=== PATIENT | male | born 1975 | race African-American/Black ===

== ENCOUNTER 2017-05-15 22:43 | Emergency (ER) | payer BC, MEDICAID ==
[~2017-05-15] VITALS: Ht 170.2 cm; Wt 77.0 kg
[2017-05-15 22:45] VITALS: BP 142/101
== END 2017-05-16 01:05 | disposition left against medical advice (07) ==
LOC: ER 22:54
DX: Z53.21 Procedure and treatment not carried out due to patient leaving prior to being seen by health care provider (principal)

== ENCOUNTER 2017-05-16 01:34 | Emergency (ER) | payer BC, MEDICAID ==
[~2017-05-16] VITALS: Ht 170.2 cm; Wt 77.9 kg
[2017-05-16 02:20] VITALS: BP 119/78
== END 2017-05-16 02:33 | disposition left against medical advice (07) ==
LOC: ER 01:34
DX: Z53.21 Procedure and treatment not carried out due to patient leaving prior to being seen by health care provider (principal)
CPT/HCPCS: Z7610 ×3

== ENCOUNTER 2017-09-04 01:26 | Emergency (ER) | payer BC, MEDICAID | END 2017-09-04 01:48 | disposition left against medical advice (07) | LOC: ER 01:26 | DX: R09.89 Other specified symptoms and signs involving the circulatory and respiratory systems (principal); Z53.21 Procedure and treatment not carried out due to patient leaving prior to being seen by health care provider ==

== ENCOUNTER 2018-07-01 14:41 | Emergency (ER) | payer BC, MEDICAID ==
[~2018-07-01] VITALS: Ht 172.7 cm; Wt 82.8 kg
[2018-07-01 14:55] VITALS: BP 127/83
== END 2018-07-01 16:43 | disposition home or self-care (01) ==
LOC: ER 14:41
DX: M25.512 Pain in left shoulder (principal); M25.511 Pain in right shoulder; V43.52XA Car driver injured in collision with other type car in traffic accident, initial encounter; E11.9 Type 2 diabetes mellitus without complications; F17.200 Nicotine dependence, unspecified, uncomplicated; Y93.89 Activity, other specified; Y92.488 Other paved roadways as the place of occurrence of the external cause
CPT/HCPCS: 73030; 99283